=== PATIENT | male | born 1965 | race African-American/Black ===

== ENCOUNTER 2023-07-05 12:03 | Outpatient (CLI) | payer OTHER, SELFPAY ==
--- NOTE | 2023-07-05 12:17 | XR_ITS ---
WS: [id number] Left ankle, 2 views, 07/05/2023 Clinical Data: L ANKLE PAIN Comparison: None. Findings: There is internal fixation of bimalleolar fracture. There is a lateral plate with 4 orthopedic screws in the distal left fibula. There is an oblique screw in the medial malleolus. Impression: Internal fixation of bimalleolar fracture of left ankle.
--- NOTE | 2023-07-05 12:17 | XR_ITS ---
WS: [id number] Lumbar spine, 3 views, 07/05/2023 Clinical Data: LOW BACK PAIN Comparison: None. Findings: There is loss of 25% of the superior cortex of L3 which may be result of an old compression fracture. There is minimal anterior osteoarthritic spurring from L1-L5. The disc heights are normal. The transverse processes and SI joints are unremarkable. Impression: 1. Probable old L3 compression fracture with loss of 25% of the anterior and central vertebral body h eight. 2. Minimal anterior osteoarthritic spurring L1-L5.
== END 2023-07-05 12:04 | disposition home or self-care (01) ==
PROVIDERS: PCP Family Medicine; Visit Provider Dermatology
DX: Z02.71 Encounter for disability determination (principal); M47.816 Spondylosis without myelopathy or radiculopathy, lumbar region; M54.50 Low back pain, unspecified; M25.572 Pain in left ankle and joints of left foot; Z98.890 Other specified postprocedural states; S82.842D Displaced bimalleolar fracture of left lower leg, subsequent encounter for closed fracture with routine healing; X58.XXXD Exposure to other specified factors, subsequent encounter
CPT/HCPCS: 72100; 73600

== ENCOUNTER → 2023-10-12 08:36 | Outpatient (BNVA) | payer MEDICAID, SELFPAY | PROVIDERS: PCP Family Medicine; Visit Provider Student in an Organized Health Care Education/Training Program | DX: M75.101 Unspecified rotator cuff tear or rupture of right shoulder, not specified as traumatic | CPT/HCPCS: 73030 ==

== ENCOUNTER → 2024-03-07 09:35 | Outpatient (BNVA) | payer MEDICAID, SELFPAY | PROVIDERS: PCP Family Medicine; Visit Provider Family Medicine | DX: Z12.5 Encounter for screening for malignant neoplasm of prostate (principal); R79.89 Other specified abnormal findings of blood chemistry; E78.2 Mixed hyperlipidemia; K21.9 Gastro-esophageal reflux disease without esophagitis; F33.0 Major depressive disorder, recurrent, mild; E83.42 Hypomagnesemia; E55.9 Vitamin D deficiency, unspecified | CPT/HCPCS: 80053; 80061; 82306; 82607; 83735; 84443; 85025; G0103 ==

== ENCOUNTER → 2024-04-15 13:43 | Outpatient (BNVA) | payer MEDICAID, SELFPAY | PROVIDERS: PCP Family Medicine; Visit Provider Family Medicine | DX: G89.29 Other chronic pain (principal); M79.10 Myalgia, unspecified site | CPT/HCPCS: 82785; 85651; 86001; 86003; 86038; 86140; 86431 ==